=== PATIENT | male | born 1980 | race Caucasian/White ===

== ENCOUNTER 2016-12-24 15:14 | Observation (INO) | payer OTHER ==
[2016-12-24] MEDS ORDERED: Sodium Chloride 0.9% 1,000 ML IV STA (15:50)
--- NOTE | 2016-12-24 16:01 | ED PDOC ---
Arrival/HPI - General Chief Complaint: Substance Abuse Time Seen by Provider: 12/24/16 15:16 Historian: Patient, EMS EM Caveat: Intoxicated, Uncooperative - History of Present Illness Narrative History of Present Illness (Text): 12/24/16 15:45 Silvestre Duncan is a 36 year old male, who was brought in by EMS due to public intoxication. EMS reports that they found him on the ground in public and was unresponsive. EMS gave him two doses of 1mg of intranasal Narcan and on the second dose given, the patient woke up. EMS states that the patient was completely uncooperative and had to be put on 4 poitn restraints for his protection and ours. Patent eventually admitted to heroin and alcohol use and also vomited blood. Patient denies any chest pain, diarrhea, fever, tongue biting, bowel/bladder incontinence or head injury. Time/Duration: Prior to Arrival Symptom Onset: Sudden Symptom Course: Improving Activities at Onset: Other (substance use ) Modifying Factors (Text): None Context: Street Associated Symptoms (Text): vomiting blood Past Medical History - Provider Review Nursing Documentation Reviewed: Yes - Infectious Disease Hx of Infectious Diseases: None - Psychiatric Hx Substance Use: Yes Family/Social History - Physician Review Nursing Documentation Reviewed: Yes Family/Social History: Unknown Family HX Smoking Status: Unknown If Ever Smoked Hx Alcohol Use: No Hx Substance Use: Yes Allergies/Home Meds Allergies/Adverse Reactions: Allergies No Known Allergies Allergy (Verified 12/24/16 15:23) Home Medications: Home Meds Medication Instructions Recorded Confirmed No Known Home Med 12/24/16 12/24/16 Review of Systems - Physician Review All systems were reviewed & negative as marked: Yes - Review of Systems Systems not reviewed;Unavailable: Intoxicated Constitutional: absent: Fevers Cardiovascular: absent: Chest Pain Gastrointestinal: Vomiting, Hematemesis Physical Exam Vital Signs Reviewed: Yes Vital Signs Temp Pulse Resp BP Pulse Ox 12/24/16 21:30 76 16 110/76 99 12/24/16 18:46 99 H 18 107/63 96 12/24/16 17:23 98.0 F 98 H 18 118/68 97 12/24/16 15:22 98.3 F 108 H 18 124/70 96 Temperature: Afebrile Blood Pressure: Normal Pulse: Tachycardic Respiratory Rate: Normal Appearance: Positive for: Well-Appearing, Non-Toxic, Comfortable Pain Distress: None Mental Status: Positive for: Alert and Oriented X 3 - Systems Exam Head: Present: Atraumatic, Normocephalic Pupils: Present: PERRL Extroacular Muscles: Present: EOMI Conjunctiva: Present: Normal Mouth: Present: Moist Mucous Membranes Pharnyx: Present: Normal Neck: Present: Normal Range of Motion. No: MIDLINE TENDERNESS Respiratory/Chest: Present: Clear to Auscultation, Good Air Exchange. No: Respiratory Distress, Accessory Muscle Use Cardiovascular: Present: Regular Rate and Rhythm, Normal S1, S2. No: Murmurs Abdomen: Present: Normal Bowel Sounds, Other (Hematemesis). No: Tenderness, Distention, Peritoneal Signs Back: Present: Normal Inspection. No: Midline Tenderness Upper Extremity: Present: Normal Inspection, NORMAL PULSES. No: Cyanosis, Edema Lower Extremity: Present: Normal Inspection, NORMAL PULSES. No: Edema Neurological: Present: GCS=15, CN II-XII Intact, Other (slurred speech). No: Speech Normal Skin: Present: Warm, Dry, Normal Color. No: Rashes Psychiatric: Present: Alert, Oriented x 3, Intoxicated. No: Normal Insight, Normal Concentration Medical Decision Making ED Course and Treatment: 12/24/16 15:45 Impression: 36 year old male with overdose on Heroin and ETOH abuse. Differential Diagnosis included but are not limited to: GI Bleed and Alcohol intoxication, Drug Overdose. Plan: -- EKG -- Chest X-ray -- Labs -- Protonix, Sodium Chloride, and Zofran -- Reassess and disposition - Lab Interpretations I have reviewed the lab results: Yes - EKG Interpretation Interpreted by ED Physician: Yes Type: 12 lead EKG - Medication Orders Current Medication Orders: Discontinued Medications Sodium Chloride (Sodium Chloride 0.9%) 1,000 mls @ 999 mls/hr IV .Q1H1M STA Stop: 12/24/16 16:50 Last Admin: 12/24/16 16:07 Dose: 999 mls/hr Ondansetron HCl (Zofran Inj) 4 mg IVP STAT STA Stop: 12/24/16 15:50 Last Admin: 12/24/16 16:06 Dose: 4 mg Pantoprazole Sodium (Protonix Inj) 80 mg IVP STAT STA Stop: 12/24/16 15:50 Last Admin: 12/24/16 16:06 Dose: 80 mg ED OBSERVATION Discharge: Yes Date of observation admission: 12/24/16 Time of observation admission: 15:28 - Observation admission statement Patient is being placed in observation because:: Opiods overdose and ETOH abuse - Goals of Observation Goals of observation are:: Sobriety and relief of symptoms - Progress Note Progress Note: 12/24/16 15:28 Patient is currently being observed, resting, and pending sobriety. The following exams will be taken: -- EKG -- Chest X-ray -- Labs -- Protonix, Sodium Chloride, and Zofran -- Reassess and disposition 12/24/2016 17:28 Patient currently still has slurred speech, is drowsy and waiting for sobriety. No other complaints. 12/24/16 17:40 Chest X-ray: Creator : Marcelo Taylor MD FINDINGS: LUNGS: No active pulmonary disease. PLEURA: No significant pleural effusion identified, no pneumothorax apparent. CARDIOVASCULAR: Normal. OSSEOUS STRUCTURES: No significant abnormalities. VISUALIZED UPPER ABDOMEN: Normal. OTHER FINDINGS: None. IMPRESSION: No active disease. 12/24/16 19:28 Patient is awake, alert, oriented, and ambulating with steady gait. He no longer has slurred speech and reports there was no trauma. Patient denies SI and HI. Patient is clinically sober. 12/24/16 21:02 Leaving Against Medical Advice (AMA): The patient is choosing to leave against medical advice. I have personally explained to the patient that choosing to do so may result in permanent bodily harm or . I have discussed at great length that without further evaluation and monitoring there may be unforeseen circumstances and/or deterioration causing permanent bodily harm or as a result of their choice. The patient is alert, oriented, and shows the mental capacity to make clear decisions regarding the patients health care at this time. The patient continues to wish to leave against medical advice. In light of the patients decision to leave against medical advice, follow-up has been arranged and the patient is aware of the importance to following up as instructed. The patient has been advised that they should return to the emergency room immediately if they change their mind at any time, or if their condition begins to change or worsen in any way. - Scribe Statement The provider has reviewed the documentation as recorded by the Scribe 12/24/2016 Tierra Mooneya Provider Scribe Attestation: All medical record entries made by the Scribe were at my direction and personally dictated by me. I have reviewed the chart and agree that the record accurately reflects my personal performance of the history, physical exam, medical decision making, and the department course for this patient. I have also personally directed, reviewed, and agree with the discharge instructions and disposition. Disposition/Present on Arrival - Present on Arrival Any Indicators Present on Arrival: No History of DVT/PE: No History of Uncontrolled Diabetes: No Urinary Catheter: No History of Decub. Ulcer: No History Surgical Site Infection Following: None - Disposition Have Diagnosis and Disposition been Completed?: No Diagnosis: Alcohol intoxication, Opiate overdose, GI bleed Disposition: AGAINST MEDICAL ADVICE Disposition Time: 15:28 Patient Plan: Observation Condition: FAIR
[2016-12-24 16:05] LABS: ADD MANUAL DIFF? NO
[2016-12-24 16:08] LABS: BASO # 0.04 K/mm3 (0.0-2.0); BASO % 0.4 % (0.0-3.0); EOS % 0.1 % (1.5-5.0); GRAN # 8.08 (1.4-6.5); GRAN % 74.5 % (50.0-68.0); HEMATOCRIT 43.5 % (42.0-52.0); LYMPH # 2.2 (1.2-3.4); LYMPH % 20.7 % (22.0-35.0); MEAN CELL VOLUME 88.2 fL (80.0-105.0); MEAN CORPUSCULAR HEMOGLOBIN 31.4 pg (25.0-35.0); MEAN CORPUSCULAR HGB CONC 35.6 g/dl (31.0-37.0); MEAN PLATELET VOLUME 10.4 fl (7.0-11.0); MONO # 0.5 (0.1-0.6); MONO % 4.3 % (1.0-6.0); PLATELET COUNT 202 10^3/uL (120.0-450.0); RED CELL DISTRIBUTION WIDTH 13.1 % (11.5-14.5); WHITE BLOOD COUNT 10.8 10^3/ul (4.5-11.0)
[2016-12-24 16:21] LABS: INR 0.96 (0.93-1.08); PARTIAL THROMBOPLASTIN TIME 26.1 Seconds (23.7-30.8)
[2016-12-24 16:25] LABS: ALB/GLOB RATIO 1.5 (1.1-1.8); ALKALINE PHOSPHATASE 77 U/L (38-133); ALT/SGPT 47 U/L (7-56); AMYLASE 132 U/L (35-125); AST/SGOT 46 U/L (15-59); BILIRUBIN,TOTAL 0.4 mg/dL (0.2-1.3); BLOOD UREA NITROGEN 8 mg/dL (7-21); CALCIUM 8.9 mg/dL (8.4-10.5); CARBON DIOXIDE 20 mmol/L (21-33); CHLORIDE 106 mmol/L (98-107); GFR AFRICAN-AMERICAN > 60; GLUCOSE,RANDOM 117 mg/dL (70-110); LIPASE 605 U/L (23-300); POTASSIUM 3.8 mmol/L (3.6-5.0); SODIUM 144 mmol/L (132-148); TOTAL PROTEIN 7.9 g/dL (5.8-8.3)
[2016-12-24 17:24] VITALS: TEMP 98
--- NOTE | 2016-12-24 17:33 | RAD ---
HISTORY: gi bleed COMPARISON: No prior. FINDINGS: LUNGS: No active pulmonary disease. PLEURA: No significant pleural effusion identified, no pneumothorax apparent. CARDIOVASCULAR: Normal. OSSEOUS STRUCTURES: No significant abnormalities. VISUALIZED UPPER ABDOMEN: Normal. OTHER FINDINGS: None. IMPRESSION: No active disease.
[2016-12-24 22:05] VITALS: BP 110/76; PULSE 76; RESP 16; O2SAT 99
== END 2016-12-24 21:04 | disposition home or self-care (01) ==
LOC: ED 15:14 → EROBSV 15:28
PROVIDERS: ADMIT Emergency Medicine; ATTEND Emergency Medicine
DX: F10.129 Alcohol abuse with intoxication, unspecified (principal); Y90.8 Blood alcohol level of 240 mg/100 ml or more; T40.0X1A Poisoning by opium, accidental (unintentional), initial encounter; Y92.9 Unspecified place or not applicable; K92.2 Gastrointestinal hemorrhage, unspecified
CPT/HCPCS: 71010; 80053; 82150; 82948; 83690; 85025; 85610; 85730; 96374; 96375; 99285; C9113; G0378; G0480; J2405; J7040

== ENCOUNTER 2017-07-01 15:48 | Emergency (ER) | payer OTHER ==
[2017-07-01 15:48] VITALS: BMI 29.9
[2017-07-01 16:00] VITALS: TEMP 99.2
--- NOTE | 2017-07-01 16:48 | ED PDOC ---
Arrival/HPI - General Chief Complaint: Flu-like Symptoms Time Seen by Provider: 07/01/17 16:16 Historian: Patient - History of Present Illness Narrative History of Present Illness (Text): 07/01/17 16:46 37yo male with no PMHx who present with complaint of subjective fever, cough and generalized body ache x 2days. States he took OTC analgesia "equate" without relieve. He denies sore throat, vomiting, abdominal pain, sick contact, travel, any other complaint. Past Medical History - Provider Review Nursing Documentation Reviewed: Yes - Infectious Disease Hx of Infectious Diseases: None - Tetanus Immunization Tetanus Immunization: Unknown - Past Medical History Past Medical History: No Previous - Psychiatric Hx Depression: No Hx Emotional Abuse: No Hx Physical Abuse: No Hx Substance Use: Yes - Past Surgical History Past Surgical History: No Previous - Anesthesia Hx Anesthesia: No - Suicidal Assessment Feels Threatened In Home Enviroment: No Family/Social History - Physician Review Nursing Documentation Reviewed: Yes Family/Social History: Unknown Family HX Smoking Status: Unknown If Ever Smoked Hx Alcohol Use: No Hx Substance Use: Yes Substance used: heroine Hx Substance Use Treatment: No Allergies/Home Meds Allergies/Adverse Reactions: Allergies No Known Allergies Allergy (Verified 12/24/16 15:23) Review of Systems - Physician Review All systems were reviewed & negative as marked: Yes - Review of Systems Constitutional: Fatigue, Fevers Eyes: Normal ENT: Normal Respiratory: Cough Cardiovascular: Normal Gastrointestinal: Normal Genitourinary Male: Normal Musculoskeletal: Normal Skin: Normal Neurological: Normal Endocrine: Normal Hemo/Lymphatic: Normal Psychiatric: Normal Physical Exam Vital Signs Reviewed: Yes Vital Signs Temp Pulse Resp BP Pulse Ox 07/01/17 18:25 82 18 138/70 98 07/01/17 17:15 85 18 148/69 99 07/01/17 15:57 99.2 F 98 H 20 153/70 H 98 Temperature: Afebrile Blood Pressure: Normal Pulse: Regular Respiratory Rate: Normal Appearance: Positive for: Well-Appearing, Non-Toxic, Comfortable Pain Distress: None Mental Status: Positive for: Alert and Oriented X 3 - Systems Exam Head: Present: Atraumatic, Normocephalic Pupils: Present: PERRL Extroacular Muscles: Present: EOMI Conjunctiva: Present: Normal Mouth: Present: Moist Mucous Membranes Neck: Present: Normal Range of Motion Respiratory/Chest: Present: Clear to Auscultation, Good Air Exchange. No: Respiratory Distress, Accessory Muscle Use, Wheezes, Decreased Breath Sounds, Rales, Retracting, Rhonchi, Tachypneic Cardiovascular: Present: Regular Rate and Rhythm, Normal S1, S2. No: Murmurs Abdomen: Present: Normal Bowel Sounds. No: Tenderness, Distention, Peritoneal Signs Back: Present: Normal Inspection Upper Extremity: Present: Normal Inspection. No: Cyanosis, Edema Lower Extremity: Present: Normal Inspection. No: Edema Neurological: Present: GCS=15, CN II-XII Intact, Speech Normal Skin: Present: Warm, Dry, Normal Color. No: Rashes Psychiatric: Present: Alert, Oriented x 3, Normal Insight, Normal Concentration Medical Decision Making ED Course and Treatment: 07/02/17 01:03 PT presented for stated history. Rapid flu and CXR was negative. PT was treated with Apack and antitussive. Referred to the clinic. Advised to drink plenty of fluid and rest. - Lab Interpretations Lab Results: Lab Results 07/01/17 16:50: Influenza Typ A,B (EIA) Negative for flu a/b - RAD Interpretation Radiology Orders: 07/01/17 16:16 CHEST TWO VIEWS (PA/LAT) [RAD] Stat - Medication Orders Current Medication Orders: Discontinued Medications Azithromycin (Zithromax) 500 mg PO STAT STA PRN Reason: Protocol Stop: 07/01/17 17:43 Last Admin: 07/01/17 18:32 Dose: 500 mg Ibuprofen (Motrin Tab) 600 mg PO STAT STA Stop: 07/01/17 16:17 Last Admin: 07/01/17 16:30 Dose: Disposition/Present on Arrival - Present on Arrival Any Indicators Present on Arrival: No History of DVT/PE: No History of Uncontrolled Diabetes: No Urinary Catheter: No History of Decub. Ulcer: No History Surgical Site Infection Following: None - Disposition Have Diagnosis and Disposition been Completed?: Yes Diagnosis: URI (upper respiratory infection) Disposition: HOME/ ROUTINE Disposition Time: 17:45 Patient Plan: Discharge Condition: STABLE Discharge Instructions (ExitCare): Upper Respiratory Infection (ED) Additional Instructions: Follow up with your doctor/clinic Drink plenty of fluid and rest return to ED for any new or worsening symptoms Prescriptions: Azithromycin [Zithromax] 250 mg PO DAILY #4 tab Benzonatate [Tessalon Perles] 100 mg PO TID #20 sgl Ibuprofen [Motrin Tab] 600 mg PO Q6 #20 tab Referrals: PCP,NO [Primary Care Provider] - [place] up [place] [facility] [place] - Follow up with primary Forms: [employer] [address] ([place])
[2017-07-01 17:16] VITALS: RESP 18
--- NOTE | 2017-07-01 17:28 | RAD ---
HISTORY: cough COMPARISON: 12/24/2016. TECHNIQUE: Chest PA and lateral FINDINGS: LUNGS: No active pulmonary disease. PLEURA: No significant pleural effusion identified. No pneumothorax apparent. CARDIOVASCULAR: Normal. OSSEOUS STRUCTURES: No significant abnormalities. VISUALIZED UPPER ABDOMEN: Normal. OTHER FINDINGS: None. IMPRESSION: No active disease. No significant interval change compared to the prior examination(s).
[2017-07-01 18:26] VITALS: BP 138/70; PULSE 82; O2SAT 98
== END 2017-07-01 18:35 | disposition home or self-care (01) ==
LOC: ED 15:48
DX: J06.9 Acute upper respiratory infection, unspecified (principal)

== ENCOUNTER 2017-09-07 02:38 | Emergency (ER) | payer OTHER ==
[2017-09-07 02:38] VITALS: BMI 29.9
--- NOTE | 2017-09-07 03:00 | ED PDOC ---
Arrival/HPI - General Chief Complaint: Alcohol Ingestion Time Seen by Provider: 09/07/17 02:41 Historian: Patient - History of Present Illness Narrative History of Present Illness (Text): 09/07/17 02:59 Silvestre Duncan is a 37 year old male, who past medical history includes alcohol abuse, who presents to the emergency department complaining of alcohol intoxication tonight. EMS reports they found the patient outside inebriated, patient admits to drinking. Patient denies any fever, chills, chest pain, shortness of breath, abdominal pain, nausea, vomiting, diarrhea, urinary symptoms, back pain, neck pain, headache, dizziness, or any other complaints. Time/Duration: Other (tonight) Symptom Onset: Gradual Symptom Course: Unchanged Activities at Onset: Light Context: Street Past Medical History - Provider Review Nursing Documentation Reviewed: Yes - Infectious Disease Hx of Infectious Diseases: None - Tetanus Immunization Tetanus Immunization: Unknown - Past Medical History Past Medical History: No Previous - Cardiac Other/Comment: Pt denies - Psychiatric Hx Depression: No Hx Emotional Abuse: No Hx Physical Abuse: No Hx Substance Use: Yes - Past Surgical History Past Surgical History: No Previous - Anesthesia Hx Anesthesia: No - Suicidal Assessment Feels Threatened In Home Enviroment: No Family/Social History - Physician Review Nursing Documentation Reviewed: Yes Family/Social History: Unknown Family HX Smoking Status: Unknown If Ever Smoked Hx Alcohol Use: No Hx Substance Use: Yes Substance used: heroine Hx Substance Use Treatment: No Allergies/Home Meds Allergies/Adverse Reactions: Allergies No Known Allergies Allergy (Verified 09/07/17 03:07) Review of Systems - Physician Review All systems were reviewed & negative as marked: Yes - Review of Systems Constitutional: Normal Eyes: Normal ENT: Normal Respiratory: Normal. absent: SOB, Cough Cardiovascular: Normal. absent: Chest Pain Gastrointestinal: Normal. absent: Abdominal Pain, Diarrhea, Vomiting Genitourinary Male: Normal. absent: Frequency, Hematuria, Urinary Output Changes Musculoskeletal: Normal. absent: Back Pain, Neck Pain Skin: Normal. absent: Rash Neurological: Normal. absent: Headache, Dizziness Endocrine: Normal Hemo/Lymphatic: Normal Psychiatric: Normal Physical Exam Vital Signs Reviewed: Yes Vital Signs Temp Pulse Resp BP Pulse Ox 09/07/17 02:55 97.4 F L 78 18 116/91 H 95 Temperature: Afebrile Blood Pressure: Normal Pulse: Regular Respiratory Rate: Normal Appearance: Positive for: Well-Appearing, Non-Toxic, Comfortable Pain Distress: None Mental Status: Positive for: Alert and Oriented X 3 - Systems Exam Head: Present: Atraumatic, Normocephalic Pupils: Present: PERRL Extroacular Muscles: Present: EOMI Conjunctiva: Present: Normal Mouth: Present: Moist Mucous Membranes Neck: Present: Normal Range of Motion Respiratory/Chest: Present: Clear to Auscultation, Good Air Exchange. No: Respiratory Distress, Accessory Muscle Use Cardiovascular: Present: Regular Rate and Rhythm, Normal S1, S2. No: Murmurs Abdomen: No: Tenderness, Distention, Peritoneal Signs Back: Present: Normal Inspection Upper Extremity: Present: Normal Inspection. No: Cyanosis, Edema Lower Extremity: Present: Normal Inspection. No: Edema Neurological: Present: GCS=15, CN II-XII Intact, Speech Normal, Motor Func Grossly Intact, Normal Sensory Function Skin: Present: Warm, Dry, Normal Color. No: Rashes Psychiatric: Present: Alert, Intoxicated Medical Decision Making ED Course and Treatment: 09/07/17 02:59 Impression: 37 year old male brought in for alcohol intoxication tonight. Differential Diagnosis included but are not limited to: alcohol intoxication Plan: -- Reassess and disposition Prior Visits: Notes and results from previous visits were reviewed. Progress Notes: 09/07/17 07:00 Pt awake alert,sober with steady gait. - Scribe Statement The provider has reviewed the documentation as recorded by the Laurence Covarrubias Provider Scribe Attestation: All medical record entries made by the Scribtor were at my direction and personally dictated by me. I have reviewed the chart and agree that the record accurately reflects my personal performance of the history, physical exam, medical decision making, and the department course for this patient. I have also personally directed, reviewed, and agree with the discharge instructions and disposition. Disposition/Present on Arrival - Present on Arrival Any Indicators Present on Arrival: No History of DVT/PE: No History of Uncontrolled Diabetes: No Urinary Catheter: No History of Decub. Ulcer: No History Surgical Site Infection Following: None - Disposition Have Diagnosis and Disposition been Completed?: Yes Diagnosis: Alcohol intoxication Disposition: HOME/ ROUTINE Disposition Time: 07:00 Patient Plan: Discharge Patient Problems: Current Active Problems Problem Status Onset Alcohol intoxication Acute Condition: STABLE Discharge Instructions (ExitCare): Alcohol Abuse and Alcoholism (DC) Referrals: Alcoholics Anonymous [Outside] - Follow up with primary Forms: [employer] (Turkish)
[2017-09-07 07:17] VITALS: BP 120/82; PULSE 89; RESP 17; TEMP 98.2; O2SAT 100
== END 2017-09-07 07:17 | disposition home or self-care (01) ==
LOC: ED 02:38
DX: F10.129 Alcohol abuse with intoxication, unspecified (principal)